=== PATIENT | male | born 1975 | race Caucasian/White ===

== ENCOUNTER 2020-06-26 12:10 | Emergency (ER) | payer OTHER ==
[~2020-06-26] VITALS: Ht 177.8 cm; Wt 85.7 kg
[2020-06-26] MEDS ORDERED: NAPROSYN500 MG PO (12:18)
[2020-06-26 12:39] LABS: ABSOLUTE BASOPHILS 0.1 thou/uL (0.0-0.2); ABSOLUTE EOSINOPHILS 0.3 thou/uL (0.0-0.7); ABSOLUTE LYMPHOCYTES 2.1 thou/uL (0.8-5.3); ABSOLUTE MONOCYTES 0.6 thou/uL (0.0-1.2); ABSOLUTE NEUTROPHILS 4.6 thou/uL (1.6-8.1); BASOPHILS 1.1 %; EOSINOPHILS 3.8 %; HEMATOCRIT 47.2 % (42.0-52.0); HEMOGLOBIN 15.6 gm/dL (14.0-18.0); LYMPHOCYTES 27.1 %; MCH 29.4 pg (26.0-34.0); MCHC 32.9 g/dL (28.0-37.0); MCV 89.3 fL (80.0-100.0); MONOCYTES 8.1 %; MPV 8.2 fl. (7.2-11.1); NUCLEATED RBCS 0 /100WBC; PLATELET COUNT* 274 thou/uL (150-400); POLYS 59.9 %; RBC 5.29 mil/uL (4.50-6.00); WBC 7.6 thou/uL (4.0-11.0)
[2020-06-26 13:01] LABS: ALBUMIN 3.7 g/dL (3.4-5.0); CALCIUM 8.2 mg/dL (8.5-10.1); CREATININE 0.8 mg/dL (0.6-1.3); POTASSIUM 3.7 mmol/L (3.5-5.1); TOTAL BILIRUBIN 0.7 mg/dL (<0.1-1.0); TOTAL PROTEIN 6.6 g/dL (6.4-8.2)
[2020-06-26 14:12] VITALS: BP 128/89
--- NOTE | 2020-06-27 12:17 | EKG ---
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 : 1975 Requested By: Stepan Stapleton Order Number: [id number] MD: Jacob Mendieta Measurements Intervals [place] Rate: 94 P: 57 LA: 116 QRS: 97 QRSD: 82 T: 54 QT: 358 QTc: 448 Interpretive Statements Sinus rhythm Borderline short LA interval Borderline right axis deviation RSR' in V1 or V2, probably normal variant ST elev, probable normal early repol pattern No previous ECG available for comparison Electronically Signed On 06-27-2020 12:17:17 [employer] by Jacob Mendieta [email or web address] <ELECTRONICALLY SIGNED> By: Jacob Mendieta MD, FACC 06/27/20 1217 10 10 Jacob Mendieta MD, [facility] /EPI
== END 2020-06-26 14:14 | disposition left against medical advice (07) ==
LOC: M.ERS 12:10
PROVIDERS: Emergency Medicine Emergency Medical Services
DX: R07.89 Other chest pain (principal); R06.02 Shortness of breath